=== PATIENT | female | born 1970 | race American Indian/Alaskan Native ===

== ENCOUNTER 2020-05-24 12:11 | Emergency (ER) | payer MEDICARE ==
[2020-05-24 14:45] VITALS: BP 149/75
--- NOTE | 2020-05-24 14:58 | Event Note ---
ED Screening Note ED Screening Note: Patient is a 41-year-old female presents emergency room complaints of nausea, vomiting, diarrhea that began 3 days ago She states 4 days ago she ate some fried rice and chicken wings and began feeling sick the next day She states that she has some abdominal soreness She denies any fever, hematochezia, melena, hematemesis, urinary symptoms She denies any recent travel, sick contacts, recent antibiotics, water from a different source, camping Past medical history of diabetes She has an allergy to Xanax, Percocet Last menstrual cycle This initial assessment/diagnostic orders/clinical plan/treatment(s) is/are subject to change based on patients health status, clinical progression and re-assessment by fellow clinical providers in the ED. Further treatment and workup at subsequent clinical providers discretion. Patient/guardian urged not to elope from the ED as their condition may be serious if not clinically assessed and managed. Initial orders include: Labs, urine
[2020-05-24 16:59] LABS: Basophils % (Auto) 0.2 % (0.0-1.8); Eosinophils # (Auto) 0.1 K/mm3 (0.0-0.4); Eosinophils % (Auto) 1.2 % (0.0-4.3); Hematocrit 37.5 % (30.3-42.9); Hemoglobin 12.1 gm/dl (10.1-14.3); Lymphocytes % (Auto) 30.6 % (13.4-35.0); Mean Corpuscular HGB Conc 32 % (30-34); Mean Corpuscular Volume 83 fl (79-97); Monocytes # (Auto) 0.9 K/mm3 (0.0-0.8); Monocytes % (Auto) 8.8 % (0.0-7.3); Platelet Count 275 K/mm3 (140-440); Red Blood Count 4.55 M/mm3 (3.65-5.03); Red Cell Distribution Width 15.6 % (13.2-15.2)
[2020-05-24 17:08] LABS: Alanine Aminotransferase 17 units/L (7-56); Albumin 4.2 g/dL (3.9-5); Blood Urea Nitrogen 10 mg/dL (7-17); Calcium 8.5 mg/dL (8.4-10.2); Hemolysis Index 13
[2020-05-24 17:11] LABS: Bacteria,Urine 1+ /HPF (Negative); Bilirubin,Urine NEG (Negative); Blood,Urine NEG (Negative); Color,Urine Amber (Yellow); Mucus,Urine 2+ /HPF; Urobilinogen,Urine < 2.0 mg/dL (<2.0)
[2020-05-24 17:21] LABS: BUN/Creatinine Ratio 20
[2020-05-24] MEDS ORDERED: ONDANSETRON 4 MG/2 ML INJ IV ONE (19:53)
[2020-05-24] MEDS ORDERED: DICYCLOMINE 20 MG/2 ML INJ IM ONE (19:53)
--- NOTE | 2020-05-24 20:29 | XRay Report ---
ABDOMEN 1 VIEW INDICATION / CLINICAL INFORMATION: abd pain. COMPARISON: None available. FINDINGS: TUBES / LINES: None. BOWEL GAS PATTERN: No significant abnormality. FREE AIR / EXTRALUMINAL GAS: None. ADDITIONAL FINDINGS: Cholecystomy clips. IMPRESSION: No acute radiographic abnormality of the abdomen. Signer Name: Jax Montero MD Signed: 05/24/2020 8:24 PM Workstation Name: [id number]
--- NOTE | 2020-05-24 21:18 | Emergency Department Report ---
ED General Adult HPI - General Chief complaint: Nausea/Vomiting/Diarrhea Stated complaint: SOB/NAUSEA/VOMITING/DIARRHEA Time Seen by Provider: 05/24/20 14:52 Source: patient Mode of arrival: Wheelchair Limitations: No Limitations - History of Present Illness Initial comments: pt is a 49 y/o aaf who presents for n/v/d x days after eating chines food. st ates symptoms started 2-3 hrs after eating. pt is currently tolerating po intake , minimal nausea, and intermittent diarrhea. Last po intake 2 hrs ago. primary complaint at this time is abd spasm and cramping, pt states LMP 05/12/20, there has been no fever or chills. She denies any recent travel, sick contacts, recent antibiotics, water from a different source. PMHx includes DMII, surgical hx: cho lecystectomy, She has an allergy to Xanax, Percocet. Symptoms are exacerbated by po intake, symptoms are relived by nothing tried. - Related Data Previous Rx's Medication Instructions Recorded Last Taken Type Dicyclomine [Bentyl] 10 mg PO Q6H PRN #12 capsule 05/24/20 Unknown Rx Naproxen 500 mg PO BID PRN #15 tablet 05/24/20 Unknown Rx Ondansetron [Zofran Odt] 4 mg PO Q8HR PRN #12 tab.rapdis 05/24/20 Unknown Rx Allergies Allergy/AdvReac Type Severity Reaction Status Date / Time No Known Allergies Allergy Unverified 05/24/20 20:04 ED Review of Systems ROS: Stated complaint: SOB/NAUSEA/VOMITING/DIARRHEA Other details as noted in HPI Constitutional: malaise Eyes: denies: eye pain, eye discharge, vision change ENT: denies: ear pain, throat pain Respiratory: denies: cough, shortness of breath, wheezing Cardiovascular: denies: chest pain, palpitations Endocrine: no symptoms reported Gastrointestinal: abdominal pain (cramps), nausea, diarrhea. denies: vomiting, constipation, hematemesis, melena, hematochezia Genitourinary: denies: urgency, dysuria, discharge Musculoskeletal: denies: back pain, joint swelling, arthralgia Skin: denies: rash, lesions Neurological: denies: headache, weakness, paresthesias Psychiatric: denies: anxiety, depression Hematological/Lymphatic: denies: easy bleeding, easy bruising ED Past Medical Hx - Past Medical History Hx Diabetes: Yes Additional medical history: herniated discs, sciatica - Surgical History Additional Surgical History: parathyroid, GB, fibroids - Medications Home Medications: Home Medications Medication Instructions Recorded Confirmed Last Taken Type Dicyclomine [Bentyl] 10 mg PO Q6H PRN #12 capsule 05/24/20 Unknown Rx Naproxen 500 mg PO BID PRN #15 tablet 05/24/20 Unknown Rx Ondansetron [Zofran Odt] 4 mg PO Q8HR PRN #12 tab.rapdis 05/24/20 Unknown Rx ED Physical Exam - General Limitations: No Limitations General appearance: alert, in no apparent distress - Head Head exam: Present: atraumatic, normocephalic - Eye Eye exam: Present: normal appearance, EOMI Pupils: Present: normal accommodation - ENT ENT exam: Present: mucous membranes moist - Neck Neck exam: Present: normal inspection, full ROM. Absent: tenderness - Respiratory Respiratory exam: Present: normal lung sounds bilaterally. Absent: respiratory distress, wheezes, stridor, chest wall tenderness - Cardiovascular Cardiovascular Exam: Present: regular rate, normal rhythm. Absent: systolic murmur, diastolic murmur, rubs, gallop - GI/Abdominal GI/Abdominal exam: Present: soft, tenderness (bilat lower abd mild pain to deep palpation no peritineal signs ), normal bowel sounds. Absent: distended, guarding, rebound, rigid, bruit, hernia - Rectal Rectal exam: Present: deferred - Extremities Exam Extremities exam: Present: normal inspection, full ROM. Absent: tenderness - Back Exam Back exam: Present: normal inspection, full ROM. Absent: tenderness, CVA tenderness (R), CVA tenderness (L) - Neurological Exam Neurological exam: Present: alert, oriented X3, CN II-XII intact, normal gait - Psychiatric Psychiatric exam: Present: normal affect, normal mood - Skin Skin exam: Present: warm, dry, intact, normal color. Absent: rash ED Course Vital Signs 05/24/20 12:58 Temperature 98.4 F Pulse Rate 81 Respiratory 22 Rate Blood Pressure 149/75 O2 Sat by Pulse 96 Oximetry ED Medical Decision Making - Lab Data Result diagrams: 05/24/20 16:11 05/24/20 16:11 Labs 05/24/20 05/24/20 05/24/20 15:57 16:11 16:11 WBC 9.7 RBC 4.55 Hgb 12.1 Hct 37.5 MCV 83 MCH 27 L MCHC 32 RDW 15.6 H Plt Count 275 Lymph % (Auto) 30.6 Sullivan % (Auto) 8.8 H Eos % (Auto) 1.2 Baso % (Auto) 0.2 Lymph # (Auto) 3.0 Sullivan # (Auto) 0.9 H Eos # (Auto) 0.1 Baso # (Auto) 0.0 Seg Neutrophils % 59.2 Seg Neutrophils # 5.8 Sodium 140 Potassium 4.0 Chloride 105.8 Carbon Dioxide 22 Anion Gap 16 BUN 10 Creatinine 0.5 L Estimated GFR > 60 BUN/Creatinine Ratio 20 Glucose 103 H Calcium 8.5 Total Bilirubin < 0.20 AST 17 ALT 17 Alkaline Phosphatase 95 Total Protein 7.4 Albumin 4.2 Albumin/Globulin Ratio 1.3 Lipase 9 L HCG, Qual Urine Color Flor Urine Turbidity Cloudy Urine pH 5.0 Ur Specific Sutter 1.028 Urine Protein 30 mg/dl Urine Glucose (UA) Neg Urine Ketones Neg Urine Blood Neg Urine Nitrite Neg Urine Bilirubin Neg Urine Urobilinogen < 2.0 Ur Leukocyte Esterase Neg Urine WBC (Auto) 5.0 Urine RBC (Auto) 7.0 U Epithel Cells (Auto) 6.0 Urine Bacteria (Auto) 1+ Urine Mucus 2+ 05/24/20 16:11 WBC RBC Hgb Hct MCV MCH MCHC RDW Plt Count Lymph % (Auto) Sullivan % (Auto) Eos % (Auto) Baso % (Auto) Lymph # (Auto) Sullivan # (Auto) Eos # (Auto) Baso # (Auto) Seg Neutrophils % Seg Neutrophils # Sodium Potassium Chloride Carbon Dioxide Anion Gap BUN Creatinine Estimated GFR BUN/Creatinine Ratio Glucose Calcium Total Bilirubin AST ALT Alkaline Phosphatase Total Protein Albumin Albumin/Globulin Ratio Lipase HCG, Qual Negative Urine Color Urine Turbidity Urine pH Ur Specific Sutter Urine Protein Urine Glucose (UA) Urine Ketones Urine Blood Urine Nitrite Urine Bilirubin Urine Urobilinogen Ur Leukocyte Esterase Urine WBC (Auto) Urine RBC (Auto) U Epithel Cells (Auto) Urine Bacteria (Auto) Urine Mucus - Radiology Data Radiology results: report reviewed, image reviewed Ordering Physician: VIPIN KRAMER NP Date of Service: 05/24/20 Procedure(s): XR abdomen 1V ap Accession Number(s): [id number] cc: VIPIN KRAMER NP Fluoro Time In Minutes: ABDOMEN 1 VIEW INDICATION / CLINICAL INFORMATION: abd pain. COMPARISON: None available. FINDINGS: TUBES / LINES: None. BOWEL GAS PATTERN: No significant abnormality. FREE AIR / EXTRALUMINAL GAS: None. ADDITIONAL FINDINGS: Cholecystomy clips. IMPRESSION: No acute radiographic abnormality of the abdomen. Signer Name: Beata Varela MD Signed: 05/24/2020 8:24 PM Workstation Name: [id number] Transcribed By: EFRAIN Dictated By: BEATA VARELA MD Electronically Authenticated By: BEATA VARELA MD Signed Date/Time: 05/24/202023 DD/ 22 TD/TT: - Medical Decision Making symptoms improved, labs noted above, KUB : normal, pt is tolerating po hydration at this time, plan: dc to home with rx, hydrate as directed, follow up with pcp in 2-3 days pt verbalized agreement and understanding of dischargre plan dc'd to home in stable condition at this time. Critical care attestation.: If time is entered above; I have spent that time in minutes in the direct care of this critically ill patient, excluding procedure time. ED Disposition Clinical Impression: Nausea vomiting and diarrhea Abdominal pain Qualifiers: Abdominal location: lower abdomen, unspecified Qualified Code(s): R10.30 - Lower abdominal pain, unspecified Disposition: DC-01 TO HOME OR SELFCARE Is pt being admited?: No Does the pt Need Aspirin: No Condition: Stable Instructions: Nausea and Vomiting, Adult, Food Choices to Help Relieve Diarrhea, Adult, Rehydration, Adult Prescriptions: Dicyclomine [Bentyl] 10 mg PO Q6H PRN #12 capsule PRN Reason: abdominal spasm Naproxen 500 mg PO BID PRN #15 tablet PRN Reason: pain Ondansetron [Zofran Odt] 4 mg PO Q8HR PRN #12 tab.rapdis PRN Reason: Nausea And Vomiting Referrals: [facility] [Other] - 3-5 Days Forms: Work/School Release Form(ED) Time of Disposition: 21:29
== END 2020-05-24 21:34 | disposition home or self-care (01) ==
LOC: ED 12:11
DX: R11.2 Nausea with vomiting, unspecified (principal); R19.7 Diarrhea, unspecified; R10.9 Unspecified abdominal pain; E11.9 Type 2 diabetes mellitus without complications; Z79.899 Other long term (current) drug therapy; Z98.890 Other specified postprocedural states; Z90.49 Acquired absence of other specified parts of digestive tract
CPT/HCPCS: 36415; 74018; 80053; 81001; 83690; 84703; 85025; 96372; 96374; 99284; J0500; J2405